=== PATIENT | female | born 1965 | race Caucasian/White ===

== ENCOUNTER 2017-11-20 09:35 | Emergency (ER) | payer BC, OTHER ==
[2017-11-20 09:50] VITALS: BP 143/103
--- NOTE | 2017-11-20 10:33 | UC ---
Respiratory Complaint HPI - HPI Summary HPI Summary: Patient presents with an unremarkable past medical history. She presents today with complaints of three week onset fatigue, chills, night sweats, persistent coughing fits, with sputum production, and at times streaks of red blood in the sputum. She complaints of chest and rib pain when she coughs, and shortness of breaths with exertion. She reports intermittent episodes of wheezing with exertions. She states she went to her PCP three weeks ago and tested negative to influenza. - History of Current Complaint Chief Complaint: UCRespiratory Stated Complaint: CHEST CONGESTION, AND COUGH Time Seen by Provider: 11/20/17 10:17 Hx Obtained From: Patient Hx Last Menstrual Period: 6 yrs ago Onset/Duration: Gradual Onset, Lasting Weeks Timing: Intermittent Episodes Severity Initially: Moderate Severity Currently: Moderate Pain Intensity: 4 Character: Cough: Productive Aggravating Factors: Exertion, Deep Breaths, Recumbent Position Alleviating Factors: Other - resolves by itself. - Risk Factors Pulmonary Embolism Risk Factors: Negative Cardiac Risk Factors: Negative Pseudomonas Risk Factors: Negative Tuberculosis Risk Factors: Negative - Allergies/Home Medications Allergies/Adverse Reactions: Allergies Allergy/AdvReac Type Severity Reaction Status Date / Time Seasonal Allergies Allergy Congestion Uncoded 11/20/17 09:51 PMH/Surg Hx/FS Hx/Imm Hx Previously Healthy: Yes - Surgical History Surgical History: Yes Surgery Procedure, Year, and Place: GALL BLADDER REMOVED 2001 - Family History Known Family History: Positive: None - Denies PFH of CAD<HTN<DM., Other - [employer] - Social History Occupation: Employed Full-time Lives: With Family Alcohol Use: Occasionally Alcohol Amount: wine, a couple of glasses a day Substance Use Type: None Smoking Status (MU): Former Smoker Type: Cigarettes When Did the Patient Quit Smoking/Using Tobacco: 25 years ago Review of Systems Constitutional: Chills, Fatigue Skin: Negative Eyes: Negative ENT: Negative Respiratory: Shortness Of Breath, Cough Cardiovascular: Negative Gastrointestinal: Negative Genitourinary: Negative Motor: Negative Neurovascular: Negative Musculoskeletal: Negative Neurological: Negative Psychological: Negative Is Patient Immunocompromised?: No All Other Systems Reviewed And Are Negative: Yes Physical Exam Triage Information Reviewed: Yes Appearance: Ill-Appearing Vital Signs: Initial Vital Signs Temp 96 F 11/20/17 09:47 Pulse 84 11/20/17 09:47 Resp 18 04/15/18 09:47 BP 143/103 11/20/17 09:47 Pulse Ox 97 11/20/17 09:47 Vital Signs Reviewed: Yes Eye Exam: Normal ENT: Positive: Pharynx normal, Uvula midline Neck exam: Normal Neck: Positive: 1 Respiratory: Positive: No respiratory distress, No accessory muscle use, Crackles, Rhonchi, Wheezing Cardiovascular Exam: Normal Cardiovascular: Positive: RRR, No Murmur, Pulses Normal, Brisk Capillary Refill Musculoskeletal Exam: Normal Neurological Exam: Normal Psychological Exam: Normal Skin Exam: Normal UC Diagnostic Evaluation - Laboratory O2 Sat by Pulse Oximetry: 97 Respiratory Course/Dx - Course Course Of Treatment: Rogers presents with an unremarkable past medical History. BP elelvated today with no history of HTn, most likley secondary to illness. CHest xray was negative for PNA, but there were findings consistent with previous breast augmentation. Patient had negative PERC, WELLS scores. She does have some hemoptysis I feel most likley to the infection, and I RX Levaquin 500 mg daily for 10 days, Robitussin/codeine cough medicatiion, Albuterol HFA 1-2 inhalation every 4-6 hours as needed, and I told her she had to follow up with her PCP in 10 days, and if the hemoptysis does not resolved following the ABX she would have to been seen by PCP and most likely would need CT of the chest, and consideration of broncoscopy. She verbalized understanding of and was in agreement with the discharge plan. - Differential Dx/Diagnosis Differential Diagnosis/HQI/PQRI: Bronchitis Provider Diagnoses: bronchitis Discharge - Sign-Out/Discharge Documenting (check all that apply): Discharge - Discharge Plan Condition: Stable Disposition: HOME Prescriptions: Albuterol HFA INHALER* [Ventolin HFA Inhaler*] 1 - 2 puff INH Q4H PRN #1 mdi PRN Reason: Wheezing Codeine Phosphate/Guaifenesin [Codeine-Guaifen 10-100 mg/5 ml] 5 - 10 ml PO Q6HR 10 Days #240 liquid MDD 4 Levofloxacin TAB* [Levaquin TAB*] 500 mg PO DAILY #10 tab Patient Education Materials: Acute Bronchitis (ED) Referrals: Johny Jiménez MD [Primary Care Provider] - Additional Instructions: I recommend you follow up with your doctor in one week. - Billing Disposition and Condition Condition: STABLE Disposition: HOME
--- NOTE | 2017-11-20 10:41 | UC ---
Respiratory Complaint HPI - History of Current Complaint Chief Complaint: UCRespiratory Stated Complaint: CHEST CONGESTION, AND COUGH Time Seen by Provider: 11/20/17 10:17 Hx Last Menstrual Period: 6 yrs ago Pain Intensity: 4 - Allergies/Home Medications Allergies/Adverse Reactions: Allergies Allergy/AdvReac Type Severity Reaction Status Date / Time Seasonal Allergies Allergy Congestion Uncoded 11/20/17 09:51 PMH/Surg Hx/FS Hx/Imm Hx - Surgical History Surgical History: Yes Surgery Procedure, Year, and Place: GALL BLADDER REMOVED 2001 - Social History Alcohol Use: Occasionally Alcohol Amount: wine, a couple of glasses a day Substance Use Type: None Smoking Status (MU): Former Smoker Type: Cigarettes When Did the Patient Quit Smoking/Using Tobacco: 25 years ago Physical Exam Vital Signs: Initial Vital Signs Temp 96 F 11/20/17 09:47 Pulse 84 11/20/17 09:47 Resp 18 11/20/17 09:47 BP 143/103 11/20/17 09:47 Pulse Ox 97 11/20/17 09:47 UC Diagnostic Evaluation - Laboratory O2 Sat by Pulse Oximetry: 97 Discharge - Discharge Plan Referrals: Johny Jiménez MD [Primary Care Provider] -
--- NOTE | 2017-11-20 11:03 | RAD ---
INDICATION: Cough and congestion x3 weeks COMPARISON: Rib x-ray dated March 05, 2015 TECHNIQUE: PA and lateral views of the chest were obtained. FINDINGS: The heart and mediastinum are normal in size and contour. Overlying the mid-level and lower left lung is a bilobed density. The superior portion appears to be extending from the chest wall by the more inferior density overlies the left lower lung. This density is not reproduced on the lateral images. Comparison to prior imaging reveals what appears to be a left breast prosthesis which may account for the unusual density seen on the AP view. A similar density is not readily discernible on the right. The lungs otherwise appear grossly clear. Visualized bones are normal for the patient's age. There is no radiographic evidence of free air beneath the diaphragm IMPRESSION: DENSITY OVERLYING THE LEFT LUNG IS EITHER THE PATIENT'S LEFT BREAST PROSTHESIS OR AN INTRATHORACIC DENSITY OVERLYING THE LOWER ANTERIOR LEFT HEMITHORAX.
== END 2017-11-20 11:20 | disposition home or self-care (01) ==
LOC: UCEAST 09:35
DX: J40 Bronchitis, not specified as acute or chronic (principal); Z87.891 Personal history of nicotine dependence
CPT/HCPCS: 71046; 99212; G0463